=== PATIENT | female | born 1995 | race Caucasian/White ===

== ENCOUNTER 2019-02-02 19:23 | Emergency (ER) | payer OTHER ==
[~2019-02-02] VITALS: Ht 160 cm; Wt 54.2 kg
[~2019-02-02 19:23] MED LIST: FERR27TA; PREN-20 PO; PREN1TAB9 PO
[2019-02-02 19:41] VITALS: Ht 160 cm; Wt 54.2 kg
[2019-02-02] MEDS ORDERED: SOD CHLORIDE 0.9% 1,000 ML IV STA (20:13)
[2019-02-02] MEDS ORDERED: ACETAMINOPHEN 500 MG TAB PO STA (20:13)
--- NOTE | 2019-02-02 20:15 | ERD ---
ER Documentation Chief Complaint Chief Complaint sent by pmd for fhb 195, 10 weeks , pt c/o fever/body aches HPI 23-year-old female, with a EGA 10 weeks by LMP of 11/22/18, presents to the emergency department, complaining of 2 days with acute onset of upper respiratory symptoms including fever, sore throat, chest congestion, body aches and general malaise. The patient denies abdominal pain, no vaginal bleeding, no urinary symptoms. The patient has well-[facility] care at [facility]. ROS All systems reviewed and are negative except as per history of present illness. Medications Home Meds Active Scripts Acetaminophen* (Tylenol*) 325 Mg Tablet, 2 TAB PO Q8 PRN for PAIN AND OR ELEVATED TEMP, #20 TAB Prov:GIANFRANCO DILLON MD 02/02/19 Oseltamivir Phosphate* (Tamiflu*) 75 Mg Capsule, 150 MG PO BID for 5 Days, CAP Prov:GIANFRANCO DILLON MD 02/02/19 Reported Medications Vits W-Ca,Fe,Fa(<1MG) ( Formula) 1 Tab Tablet, 1 TAB PO DAILY, #100 01/09/14 Vit 15/Iron Cb/Fa/Dss ( Ad Tablet) 1 Tab Tablet, 1 TAB PO DAILY 01/09/14 Ferrous Sulfate (Iron) 1 Tab Tablet, 1 .ROUTE 01/09/14 Allergies Allergies: Coded Allergies: No Known Allergy (Unverified , 01/09/14) PMhx/Soc History of Surgery: No Anesthesia Reaction: No Hx Neurological Disorder: No Hx Respiratory Disorders: No Hx Cardiac Disorders: No Hx Psychiatric Problems: No Hx Miscellaneous Medical Probl: No Hx Alcohol Use: No Hx Substance Use: No Hx Tobacco Use: No Smoking Status: Never smoker Physical Exam Vitals Vital Signs Date Temp Pulse Resp B/P (MAP) Pulse Ox O2 O2 Flow FiO2 Time Delivery Rate 02/02/19 99.7 106 18 106/54 99 Room Air 21:55 (71) 02/02/19 101.3 20:27 02/02/19 101.4 113 18 137/69 99 19:41 (91) Physical Exam Patient is in moderate distress due to cough and fever, vital signs showed fever. EYES: PERRLA, EOMI, injected sclerae EARS: Canals clear, erythematous tympanic membranes THROAT: Erythematous oropharynx. NECK: Supple, No lymphadenopathy. Full ROM without pain or tenderness. HEART: RRR, no rubs, murmurs, clicks or gallops. LUNGS: Bilateral rhonchi to auscultation. ABDOMEN: Soft, non-tender without masses or hepatosplenomegaly. EXTREMITIES: No edema bilaterally. BACK: Full ROM, no deformity, normal back exam NEURO: Cranial nerves grossly intact, no motor or sensory deficit Results 24 hrs Laboratory Tests Test 02/02/19 20:20 Urine Color YELLOW Urine Clarity SLIGHTLY CLOUDY Urine pH 5.0 Urine Specific [place] 1.029 Urine Ketones 2+ mg/dL Urine Nitrite NEGATIVE mg/dL Urine Bilirubin NEGATIVE mg/dL Urine Urobilinogen 1+ mg/dL Urine Leukocyte Esterase TRACE Kaylen/ul Urine Microscopic RBC 1 /HPF Urine Microscopic WBC 5 /HPF Urine Squamous Epithelial Cells FEW /HPF Urine Bacteria FEW /HPF Urine Mucus MANY /HPF Urine Hemoglobin NEGATIVE mg/dL Urine Glucose NEGATIVE mg/dL Urine Total Protein 1+ mg/dl Current Medications Medications Dose Sig/Milka Start Time Status Last (Trade) Ordered Route PRN Stop Time Admin Dose Reason Admin Sodium 1,000 ml @ Q2H STAT 02/02/19 02/02/19 Chloride 500 mls/hr IV 20:13 20:26 02/02/19 22:12 1,000 mg ONCE STAT 02/02/19 DC 02/02/19 Acetaminophen PO 20:13 20:27 (Tylenol 02/02/19 20:19 Tab) Oseltamivir 150 mg ONCE ONCE 02/02/19 DC 02/02/19 Phosphate PO 21:00 21:01 (Tamiflu) 02/02/19 21:01 DIAGNOSTIC IMAGING REPORT Patient: MIRANDA BENJAMIN : 1995 Age: 23 Sex: F MR #: [id number] DOS: 02/02/192012 Ordering MD: GIANFRANCO DILLON MD Location: [facility] Room/Bed: PROCEDURE: US OB. CLINICAL INDICATION: Fever, tachycardia TECHNIQUE: Transabdominal views of the pelvis were obtained. COMPARISON: No prior studies are available for comparison. FINDINGS: There is a single intrauterine gestation with a CRL measuring 3.6 cm, corresponding to a gestational age of 10 weeks and 3 days. The heart rate is noted at 198 bpm. There is a hypoechoic fluid collection adjacent to the gestational sac, measuring 2.2 cm, consistent with subchorionic hemorrhage. Right ovary was not seen. The left ovary measures 3.9 x 2.0 cm. There is 1.9 cm corpus cyst in the left ovary.. There is no free fluid. RPTAT: AA IMPRESSION: Single live intrauterine with an estimated gestational age of 10 weeks and 3 days, based on ultrasound measurements. tachycardia. Focal area of subchorionic hemorrhage. Close follow-up is recommended. .Saúl Newman MD, MD Date Time Electronically viewed and signed by .Saúl Newman MD, MD on 02/02/2019 21:13 Name: KARAN BENJAMINCRUZ Age/Sex: 23/F Attend Dr: GIANFRANCO METZGER Acct: [id number] MR# : [id number] : 1995 Location: [facility] Admit: 02/02/19 Specimen: [id number] Status: Complete Bri: 02/02/19 Rcvd: 02/02/19 Source: BIBIANA Mercado Descrip: Procedure Result - Microbiology INFLUENZA A & B BY EIA Final INFLU A&B BY EIA INFLUENZA A POSITIVE (Ref Range Neg) INFLUENZA B NEGATIVE (Ref Range Neg) Phoned to Edy FRIEDMAN 02/02/192050 Procedures/MDM At the time of discharge, patient with nontoxic appearance, vital signs stable, no respiratory distress. Differential diagnosis include but not limited to: Respiratory infection bacterial/viral/fungal. Asthma/COPD, pneumonitis, allergies, GERD. Less likely foreign body aspiration, cardiac related, aspiration pneumonia, malignancy. Physical examination and clinical presentation consistent most likely with influenza. During the ED course the patient remained stable, fever resolved with medications given in the ER, no new complaints. Clinical impression discussed with patient who agrees with management. The patient is stable to be treated outpatient and will be discharged home with a Rx for antiviral medication and ibuprofen, antibiotics not indicated at this time. Some side effects of prescribed medications (headache, rash, nausea, vomiting, diarrhea, drowsiness, habituation, bleeding, hypertension, interactions with other medications) were reviewed. The patient was instructed to follow up with the primary care provider in the next 48h. If symptoms persist, worsen or new symptoms develop, then patient should return to the ED immediately. Disclaimer: Inadvertent spelling and grammatical errors are likely due to EHR/dictation software use and do not reflect on the overall quality of patient care. Also, please note that the electronic time recorded on this note does not necessarily reflect the actual time of the patient encounter. Departure Diagnosis: Primary Impression: Influenza A Additional Impression: 10 weeks gestation of Condition: Stable Additional Instructions: Thank you very much for allowing us to participate in your care. Your health and safety is our top priority at [facility]. Call your primary care doctor TOMORROW for an appointment during the next 2-4 days and bring all the information and medications prescribed. Have prescriptions filled and follow precisely the directions on the label. If the symptoms get worse and your provider is unavailable, return to the Emergency Department immediately. GIANFRANCO DILLON MD Feb 02, 2019 20:15
[2019-02-02] MEDS ORDERED: OSELTAMIVIR 75 MG CAP PO ONE (21:00)
[2019-02-02 21:55] VITALS: BP 106/54; PULSE 106; RESP 18
[2019-02-02] MEDS ORDERED: ACET325T33 PO (22:02)
[2019-02-02] MEDS ORDERED: OSEL75CA23 PO (22:02)
== END 2019-02-02 22:14 | disposition home or self-care (01) ==
LOC: FTE 19:23
DX: O98.511 Other viral diseases complicating pregnancy, first trimester (principal); J10.1 Influenza due to other identified influenza virus with other respiratory manifestations; Z3A.01 Less than 8 weeks gestation of pregnancy
CPT/HCPCS: 76801; 81001; 87400; 96360; 96361; J7030; Z7502; Z7610

== ENCOUNTER 2019-07-14 16:33 | Outpatient (CLI) | payer OTHER ==
[~2019-07-14] VITALS: Ht 160 cm; Wt 66.1 kg
[~2019-07-14 16:33] MED LIST changes: +ACET325T33 PO; +OSEL75CA23 PO
[2019-07-14 17:05] VITALS: Ht 160 cm; Wt 66.1 kg
== END 2019-07-14 19:15 | disposition home or self-care (01) ==
LOC: OBT 16:33 → L-D 16:35 → OBT 19:15
PROVIDERS: ATTEND Obstetrics & Gynecology
DX: O26.843 Uterine size-date discrepancy, third trimester (principal); Z3A.33 33 weeks gestation of pregnancy
CPT/HCPCS: 76815; 76818; Z7500; G0463